=== PATIENT | male | born 1970 | race Caucasian/White ===

== ENCOUNTER → 2020-10-08 10:00 | Outpatient (BNVA) | payer OTHER, MEDICAID, SELFPAY | PROVIDERS: Family Provider Nurse Practitioner; PCP Nurse Practitioner; Visit Provider Nurse Practitioner Family | DX: I10 Essential (primary) hypertension (principal) | CPT/HCPCS: 80053 ==

== ENCOUNTER → 2020-12-13 10:15 | Outpatient (BNVA) | payer OTHER, MEDICAID, SELFPAY | PROVIDERS: Family Provider Nurse Practitioner; PCP Nurse Practitioner; Visit Provider Nurse Practitioner | DX: I10 Essential (primary) hypertension (principal); Z87.19 Personal history of other diseases of the digestive system; M51.34 Other intervertebral disc degeneration, thoracic region | CPT/HCPCS: 81000 ==

== ENCOUNTER 2020-12-30 09:15 | Outpatient (CLI) | payer OTHER, MEDICAID, SELFPAY ==
--- NOTE | 2020-12-30 09:30 | US_ITS ---
WS: [id number] ULTRASOUND ABDOMEN CLINICAL INFORMATION: Z87.19 - Personal history of other diseases of the digestive system COMPARISON: None. FINDINGS: Liver Size: Normal. Craniocaudal length: 14.9 cm. Echogenicity: Coarse and echogenic Surface nodularity: None. Mass (size and location): None. Bile ducts Intrahepatic ducts: Normal. Common bile duct diameter: 0.5 cm. Gallbladder Normal. Gallstones: None. Gallbladder sludge: None. Gallbladder wall thickening: None. Pericholecystic fluid: None. Sonographic Winter sign: Absent. Pancreas Normal as visualized. Spleen Splenomegaly: Mild Craniocaudal length: 13.6 cm. Right kidney: Normal. Hydronephrosis: None. Size: 10.3 cm x 5.3 cm x 5.9 cm Left kidney: Normal. Hydronephrosis: None. Size: 11.8 cm x 5.2 cm x 5.8 cm. Abdominal aorta and IVC Visualized portions are normal. Ascites: None. US/US abdomen complete* [id number] IMPRESSION: 1. Mild diffuse fatty infiltration of the liver. 2. No hydronephrosis in either kidney. 3. Normal gallbladder. 4. Mild splenomegaly measuring 13.5 CM.
== END 2020-12-30 09:16 | disposition home or self-care (01) ==
LOC: US 09:15
PROVIDERS: PCP Nurse Practitioner; Visit Provider Nurse Practitioner
DX: Z87.19 Personal history of other diseases of the digestive system (principal); R16.1 Splenomegaly, not elsewhere classified; K76.0 Fatty (change of) liver, not elsewhere classified
CPT/HCPCS: 76700

== ENCOUNTER → 2021-08-11 10:21 | Outpatient (BNVA) | payer OTHER, MEDICAID, SELFPAY | PROVIDERS: PCP Nurse Practitioner; Visit Provider Nurse Practitioner Family | DX: I10 Essential (primary) hypertension (principal); M51.34 Other intervertebral disc degeneration, thoracic region; M79.673 Pain in unspecified foot; G89.29 Other chronic pain | CPT/HCPCS: 80053; 80061; 84443; 85025 ==

== ENCOUNTER → 2021-11-26 13:36 | Outpatient (BNVA) | payer OTHER, MEDICAID, SELFPAY | PROVIDERS: PCP Nurse Practitioner; Referring Provider Nurse Practitioner Family; Visit Provider Podiatrist Foot & Ankle Surgery | DX: M79.671 Pain in right foot (principal); M79.672 Pain in left foot | CPT/HCPCS: 73630 ==

== ENCOUNTER → 2022-07-23 08:40 | Outpatient (BNVA) | payer OTHER, MEDICAID, SELFPAY | PROVIDERS: PCP Nurse Practitioner; Visit Provider Nurse Practitioner Family | DX: M79.671 Pain in right foot (principal) | CPT/HCPCS: 73630 ==

== ENCOUNTER 2022-07-31 03:30 | Emergency (ER) | payer OTHER, MEDICAID, SELFPAY ==
[2022-07-31 03:33] VITALS: BP 174/113; PULSE 65; RESP 18; TEMP 36.4; O2SAT 99; BMI 28.0
--- NOTE | 2022-07-31 03:41 | CTR_ITS ---
PROCEDURE INFORMATION: Exam: CT Abdomen And Pelvis Without Contrast Exam date and time: 07/31/2022 4:01 AM Age: 52 years old Clinical indication: Abdominal pain; Localized; Prior surgery; Surgery type: Appy; Patient HX: Lower abd pain with gross hematuria. ; Additional info: Abdominal pain, hematuria TECHNIQUE: Imaging protocol: Computed tomography of the abdomen and pelvis without contrast. Radiation optimization: All CT scans at this facility use at least one of these dose optimization techniques: automated exposure control; mA and/or kV adjustment per patient size (includes targeted exams where dose is matched to clinical indication); or iterative reconstruction. COMPARISON: CT abdomen pelvis wo con [id number] 03/16/2018 9:48 AM RADIATION DOSE METRICS: Total DLP (mGy-cm): 627.83 FINDINGS: Lungs: The lung bases are clear. No effusion Liver: Normal. No mass. Gallbladder and bile ducts: There is cholelithiasis without wall thickening or pericholecystic fluid. No bile duct stone. Pancreas: Normal. No ductal dilation. Spleen: There are multiple calcified splenic granulomata . Adrenal glands: Normal. No mass. Kidneys and ureters: Normal. No hydronephrosis. Stomach and bowel: Unremarkable. No obstruction. No mucosal thickening. Appendix: Appendix has been removed. Intraperitoneal space: Unremarkable. No free air. No significant fluid collection. Vasculature: Unremarkable. No abdominal aortic aneurysm. Lymph nodes: Unremarkable. No enlarged lymph nodes. Urinary bladder: There is urinary bladder wall thickening with pericystic fat stranding. Reproductive: Unremarkable as visualized. Bones/joints: Severe intervertebral disc space narrowing at L5-S1. Soft tissues: Unremarkable. CT/CT abdomen pelvis con [id number] IMPRESSION: 1. Findings concerning for acute cystitis. 2. Cholelithiasis without cholecystitis or choledocholithiasis.
[2022-07-31 04:00] LABS: Basophils % 0.2 %; Eosinophils # 0.2 10^3/uL (0.0-0.8); Eosinophils % 1.7 %; Hemoglobin 15.8 g/dL (11.7-16.6); Lymphocytes # 2.1 10^3/uL (0.8-4.8); Lymphocytes % 16.9 %; Mean Corpuscular HGB Conc 32.9 g/dL (30.0-36.0); Mean Corpuscular Volume 94.1 fl (80-94); Mean Platelet Volume 11.4 fL (7.4-10.4); Monocytes # 1.1 10^3/uL (0.2-0.9); Neutrophils # 8.93 10^3/uL (1.8-7.7); Nucleated Red Blood Cells % 0 %; Platelet Count 170 10^3/cmm (130-400); Red Cell Distribution Width 13.1 % (12.1-15.1); White Blood Count 12.4 10^3/uL (4.0-10.0)
[2022-07-31 04:08] VITALS: BP 157/101; PULSE 69; RESP 14; O2SAT 97
[2022-07-31 04:11] LABS: Glucose Urine UA Norm (Normal); Ketones Urine Negative (Negative); Protein Urine 3+ (Negative); Urine Appearance Cloudy (CLEAR); Urine Color Red (Yellow); pH Urine 6.5 (5-7)
[2022-07-31 04:12] LABS: Add Urine Microscopic? YES; Bacteria Urine 4+ /hpf; Bilirubin Urine Neg (Negative); Blood Urine 3+ (Negative); Leukocyte Esterase Urine 2+ (Negative); Nitrate Urine Negative (Negative); RBC Urine TOO NUMEROUS TO CNT /hpf (0-2); Squamous Epithelial Cell Urine 0-4 /hpf (0-5); Urobilinogen Urine Norm (Negative); WBC Urine TOO NUMEROUS TO CNT /hpf (0-5)
[2022-07-31 04:13] LABS: Add Urine Culture? Yes
[2022-07-31 04:26] LABS: Alanine Aminotransferase 45 U/L (0-41); Albumin Level 4.2 g/dL (3.5-5.2); Alkaline Phosphatase 118 U/L (40-130); Aspartate Amino Transferase 35 U/L (0-40); Blood Urea Nitrogen 9 mg/dL (6-20); Carbon Dioxide 25 mmol/L (22-29); Chloride 103 mmol/L (98-107); Globulin 3.3 g/dL (1.3-4.6); Glomerular Filtration Rate 89.3 mL/min (90-130); Glucose 94 mg/dL (65-115); Osmolality Calculated 284 mOsm/kg (285-295); Sodium 138 mmol/L (136-145); Total Bilirubin 0.5 mg/dL (0.15-1.2); Total Protein 7.5 g/dL (6.6-8.7)
[2022-07-31 04:34] LABS: Anion Gap 13.2 (5-19); Potassium 3.2 mmol/L (3.5-5.1)
[2022-07-31] MEDS: cefTRIAXone 2,000 MG in sodium chloride 0.9% (plus) 50 ML 100 MG IV (04:42)
--- NOTE | 2022-07-31 04:56 | W.ED.MALEGU ---
HPI - Male Genitourinary General: Chief complaint: Urogenital-Male Stated complaint: blood in urine Time Seen by Provider: 07/31/22 03:41 History of Present Illness: 52-year-old male presenting today with complaints for hematuria, dysuria and polyuria. Onset of symptoms this evening. No prior history of similar. Does have a history of multiple kidney stones in the past. But notes this did not have any flank pain rating into his groin. He notes initially he was urinating large blood clots. This is slowed down in frequency. He denies fevers or chills. He denies flank pain. He denies any other complaints. No recent antibiotic use Review of Systems General: Reports: 10 or more systems reviewed and unremarkable except in HPI and below PFSH ED PFSH: Medical History Degenerative disc disease, lumbar Degenerative disc disease, thoracic History of fatty infiltration of liver Hypertension Surgical History H/O arthroscopy of right knee History of appendectomy Family History Other Hypertension Stroke Denies family history of Diabetes Bleeding disorder Cancer Social History Smoking and tobacco status: current every day smoker Second hand smoke exposure: No Smoking risk assessment/counseling performed?: No Alcohol intake: current Alcohol intake frequency: 0-2 Drinks per Day Desire information about alcohol rehabilitation?: No Counseling given: No Desire information about substance/drug rehabilitation?: No Counseling given: No Adopted: No Caregiver/support person: No Lives independently: Yes Household members: children Marital status: Single Number of children: 2 service: No Current occupational status: 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pt History of recent travel: No Current gender identity: Male Physical Exam Const: COMMON NORMALS: no acute distress, patient oriented x3 and alert GENERAL APPEARANCE: cooperative ORIENTATION/CONSCIOUSNESS: Yes awake, Yes oriented to person, Yes oriented to place and Yes oriented to time HENMT: COMMON NORMALS: normocephalic, atraumatic, external ears normal, Normal external nose present and moist oral mucous membranes HEAD & SCALP: normal to inspection, normocephalic and atraumatic NOSE: Normal external nose present GENERAL EAR: hearing grossly impaired EXTERNAL EAR: Yes external ears normal Eye: COMMON NORMALS: Equal, round and reactive pupils present, EOMs intact bilaterally, conjunctivae normal and no scleral icterus GENERAL EYE: appearance normal, both eyes and all related structures EYELID: eyelids normal CONJUNCTIVA: Yes conjunctivae normal SCLERA: sclerae normal PUPIL: Yes Equal, round and reactive pupils present Neck/C-Spine: COMMON NORMALS: full ROM, supple and no JVD GENERAL: Yes normal visual inspection Lymph: LYMPHATIC: no lymphadenopathy noted and no lymphedema noted Chest: COMMONS NORMALS: normal inspection of the chest Resp: COMMON NORMALS: normal respiratory effort, No retractions and No use of accessory muscles Cardio: COMMON NORMALS: no JVD, regular rate and regular rhythm RATE: regular rate RHYTHM: regular rhythm GI: COMMON NORMALS: Normal to inspection, nondistended, normoactive bowel sounds present : COMMON NORMALS: Yes no CVA tenderness BLADDER/KIDNEY EXAM: Yes no CVA tenderness Back/Pelvis: COMMON NORMALS: no CVA tenderness and thoracic and lumbar spine normal to inspection Extremity: COMMON NORMALS: normal to inspection, full ROM and capillary refill normal GENERAL: Yes normal exam except as noted Neuro: COMMON NORMALS: patient oriented x3, CN's II-XII intact bilaterally, moves all extremities, no focal motor deficits, no sensory deficits noted and gait normal SENSORIUM/ORIENTATION: Yes alert, Yes oriented to person, Yes oriented to place and Yes oriented to time Psych: COMMON NORMALS: mental status grossly normal, Normal thought process present, cooperative and normal affect THOUGHT PROCESS: Normal thought process present Skin: COMMON NORMALS: no rashes or lesions noted and no wounds GENERAL SKIN EXAM: no rashes or lesions noted Course Vital Signs: Vital signs: Vital Signs Temperature 97.5 F L 07/31/22 03:33 Pulse Rate 67 07/31/22 05:30 Respiratory Rate 14 07/31/22 04:08 Blood Pressure 149/103 07/31/22 05:30 Pulse Oximetry 98 07/31/22 05:30 Oxygen Delivery Me thod 07/31/22 04:08 [facility] - Male Medical Decision Making 52-year-old male presenting today with dysuria and polyuria. Urinalysis with evidence of gross hematuria, pyuria. Suggestive of prostatitis/UTI. Patient with significant history of multiple kidney stones. CT KUB ordered for further evaluation. CT without stone. Patient was given strict return precautions and recommended routine outpatient follow-up. Lab Data : 07/31/22 03:51 07/31/22 03:51 Radiology Impressions Abdomen/Pelvis CT 07/31/22 03:41 IMPRESSION: 1. Findings concerning for acute cystitis. 2. Cholelithiasis without cholecystitis or choledocholithiasis. Laboratory Results WBC 12.4 10^3/uL (4.0-10.0) H 07/31/22 03:51 RBC 5.10 10^6/uL (4.1-5.3) 07/31/22 03:51 Hgb 15.8 g/dL (11.7-16.6) 07/31/22 03:51 Hct 48.0 % (42.0-52.0) 07/31/22 03:51 MCV 94.1 fl (80-94) H 07/31/22 03:51 MCH 31.0 pg (28.0-34.0) 07/31/22 03:51 MCHC 32.9 g/dL (30.0-36.0) 07/31/22 03:51 RDW 13.1 % (12.1-15.1) 07/31/22 03:51 Plt Count 170 10^3/cmm (130-400) 07/31/22 03:51 MPV 11.4 fL (7.4-10.4) H 07/31/22 03:51 Neut % (Auto) 72.0 % 07/31/22 03:51 Lymph % (Auto) 16.9 % 07/31/22 03:51 [place] % (Auto) 9.0 % 07/31/22 03:51 Eos % (Auto) 1.7 % 07/31/22 03:51 Baso % (Auto) 0.2 % 07/31/22 03:51 Neut # (Auto) 8.93 10^3/uL (1.8-7.7) H 07/31/22 03:51 Lymph # (Auto) 2.1 10^3/uL (0.8-4.8) 07/31/22 03:51 Garden # (Auto) 1.1 10^3/uL (0.2-0.9) H 07/31/22 03:51 Eos # (Auto) 0.2 10^3/uL (0.0-0.8) 07/31/22 03:51 Baso # (Auto) 0.0 10^3/uL (0.0-0.1) 07/31/22 03:51 Nucleated RBC % (auto) 0 % 07/31/22 03:51 Nucleated RBCs # 0.0 /100WBC 07/31/22 03:51 Sodium 138 mmol/L (136-145) 07/31/22 03:51 Potassium 3.2 mmol/L (3.5-5.1) L 07/31/22 03:51 Chloride 103 mmol/L (98-107) 07/31/22 03:51 Carbon Dioxide 25 mmol/L (22-29) 07/31/22 03:51 Anion Gap 13.2 (5-19) 07/31/22 03:51 BUN 9 mg/dL (6-20) 07/31/22 03:51 Creatinine 0.9 mg/dL (0.7-1.2) 07/31/22 03:51 GFR Calculation 89.3 mL/min (90-130) L 07/31/22 03:51 Glucose 94 mg/dL (65-115) 07/31/22 03:51 Calculated Osmolality 284 mOsm/kg (285-295) L 07/31/22 03:51 Calcium 9.0 mg/dL (8.5-10.5) 07/31/22 03:51 Total Bilirubin 0.5 mg/dL (0.15-1.2) 07/31/22 03:51 AST 35 U/L (0-40) 07/31/22 03:51 ALT 45 U/L (0-41) H 07/31/22 03:51 Alkaline Phosphatase 118 U/L (40-130) 07/31/22 03:51 Total Protein 7.5 g/dL (6.6-8.7) 07/31/22 03:51 Albumin 4.2 g/dL (3.5-5.2) 07/31/22 03:51 Globulin 3.3 g/dL (1.3-4.6) 07/31/22 03:51 Urine Color Red (Yellow) 07/31/22 03:51 Urine Appearance Cloudy (CLEAR) 07/31/22 03:51 Urine pH 6.5 (5-7) 07/31/22 03:51 Ur Specific [place] 1.010 (1.005-1.030) 07/31/22 03:51 Urine Protein 3+ (Negative) H 07/31/22 03:51 Urine Glucose (UA) Norm (Normal) 07/31/22 03:51 Urine Ketones Negative (Negative) 07/31/22 03:51 Urine Blood 3+ (Negative) H 07/31/22 03:51 Urine Nitrate Negative (Negative) 07/31/22 03:51 Urine Bilirubin Neg (Negative) 07/31/22 03:51 Urine Urobilinogen Norm mg/dL (Negative) 07/31/22 03:51 Ur Leukocyte Esterase 2+ (Negative) H 07/31/22 03:51 Urine RBC Too numerous to cnt /hpf (0-2) H 07/31/22 03:51 Urine WBC Too numerous to cnt /hpf (0-5) H 07/31/22 03:51 Ur Squamous Epith Cells 0-4 /hpf (0-5) H 07/31/22 03:51 Amorphous Sediment Not Reportable 07/31/22 03:51 Urine Bacteria 4+ /hpf (NONE) H 07/31/22 03:51 Discharge Plan Discharge Patient Disposition: Home Clinical Impression: Urinary tract infection Condition: Stable Prescriptions: New ciprofloxacin HCl 500 mg tablet 500 mg PO Q12H 14 Days Qty: 28 0RF No Action (DME) Custom Molded Orthotics See Rx Instructions .Route .MEDSUPPLY Qty: 1 0RF Rx Instructions: As directed lisinopril 20 mg tablet 20 mg PO DAILY 90 Days Qty: 90 3RF Discharge Orders: Discharge ED (Routine); Ordered 07/31/22 Ordered By: Rodney Lemus Referrals: Sean Lucas, MANAGEMENT INTERN-C [Primary Care Provider] - Patient Instructions: Urinary Tract Infection in Men (DC) Coding Level of Care Code ED Thread Separator for [place] Fwd Exam Comprehensive
[2022-07-31 05:30] VITALS: BP 149/103; PULSE 67; O2SAT 98
[2022-07-31 06:01] VITALS: BP 149/103; PULSE 67; O2SAT 98
== END 2022-07-31 06:03 | disposition home or self-care (01) ==
PROVIDERS: Emergency Provider Emergency Medicine; PCP Nurse Practitioner
DX: N39.0 Urinary tract infection, site not specified (principal)
CPT/HCPCS: 74176; 80053; 81001; 85025; 87086; 96360; 99285; J0696

== ENCOUNTER 2022-09-04 11:41 | Emergency (ER) | payer OTHER, MEDICAID, SELFPAY ==
--- NOTE | 2022-09-04 11:42 | XR_ITS ---
WS: [id number] Exam: XR hand RT min 3V* [id number] Date/Time of Exam: 09/04/2022 11:42 AM Reason For Exam: right hand injury Exam: XR hand RT min 3V* [id number] Date/Time of Exam: 09/04/2022 11:42 AM Reason For Exam: right hand injury Comparison 12/20/2017. No acute fracture or dislocation. Chronic soft tissue calcification along the third and fifth metacar pals. There appears to be an old fracture deformity at the base of the fifth metacarpal. XR/XR hand RT min 3V* [id number] IMPRESSION: 1. No acute fracture or dislocation.
[2022-09-04 11:52] VITALS: BP 125/83; PULSE 65; RESP 15; TEMP 36.5; O2SAT 98; BMI 27.4
--- NOTE | 2022-09-04 12:01 | W.ED.EXTPRO ---
Documented by User: Emily Patiño PA-C 09/04/22 12:45 HPI - Extremity Problem General: Chief complaint: Extremity Injury, Upper Stated complaint: right hand injury Time Seen by Provider: 09/04/22 12:01 Source: patient Mode of arrival: ambulatory Limitations: no limitations History of Present Illness: 52-year-old male presents to the ER today for right hand pain after getting it caught in a cynthia this morning. Patient reports he caught it between the cynthia and the truck. Patient reports there is an abrasion and significant pain at the base of his thumb. Patient reports mild swelling. He was able to pull his hand out and that is how he got the cut on it. He denies any numbness or tingling at this time. Denies any prior injury to this hand. Review of Systems General: Reports: 10 or more systems reviewed and unremarkable except in HPI and below PFSH ED PFSH: Medical History Degenerative disc disease, lumbar Degenerative disc disease, thoracic History of fatty infiltration of liver Hypertension Surgical History H/O arthroscopy of right knee History of appendectomy Family History Other Hypertension Stroke Denies family history of Diabetes Bleeding disorder Cancer Social History Smoking and tobacco status: current every day smoker Second hand smoke exposure: No Smoking risk assessment/counseling performed?: No Alcohol intake: current Alcohol intake frequency: 0-2 Drinks per Day Desire information about alcohol rehabilitation?: No Counseling given: No Desire information about substance/drug rehabilitation?: No Counseling given: No Adopted: No Caregiver/support person: No Lives independently: Yes Household members: children Marital status: Single Number of children: 2 service: No Current occupational status: 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[employer] History of recent travel: No Current gender identity: Male Physical Exam Const: COMMON NORMALS: no acute distress, average body habitus, patient oriented x3, no limitations, healthy appearing, alert and well nourished Resp: COMMON NORMALS: normal respiratory effort EFFORT & INSPECTION: Yes able to speak in complete sentences Cardio: COMMON NORMALS: regular rate and regular rhythm RATE: regular rate RHYTHM: regular rhythm Back/Pelvis: COMMON NORMALS: thoraco-lumbar ROM normal Extremity: NARRATIVE EXTREMITY EXAM: Patient has some mildly decreased range of motion of the thumb secondary to pain. There is mild swelling noted of the web spacing between the thumb and right index finger. No major tenderness of the joint noted. No deformity noted. Neuro: COMMON NORMALS: patient oriented x3 SENSORIUM/ORIENTATION: Yes alert Psych: COMMON NORMALS: mental status grossly normal, Normal thought process present and cooperative THOUGHT PROCESS: Normal thought process present Skin: NARRATIVE SKIN EXAM: Small abrasions noted to the base of the right thumb Course ED course: Patient presents for right hand pain after getting it stuck between a tractor cynthia. Patient reports pain with movement. Reports some swelling. On exam there does appear to be some swelling and also an abrasion. This abrasion is not an open laceration, is more of just a skin tear. No active bleeding. No obvious deformity. We will do an x-ray in ER today. Vital Signs: Vital signs: Vital Signs Temperature 97.7 F 09/04/22 11:52 Pulse Rate 65 09/04/22 11:52 Respiratory Rate 15 09/04/22 11:52 Blood Pressure 125/83 09/04/22 11:52 Pulse Oximetry 98 09/04/22 11:52 Oxygen Delivery Me thod 09/04/22 11:52 MDM - Extremity (Nontraumatic) Medical Decision Making X-rays negative for acute fracture. Patient reports his pain is tolerable. He would like to take home [id number] medications. We discussed home care instructions including ice bath, 20 minutes on and 20 and soft. Take ibuprofen for pain. Follow-up for new or worsening symptoms. Follow-up with PCP in 1 week. Patient verbalized understanding and was in agreement with the treatment plan. Lab Data Radiology Impressions Hand X-Ray 09/04/22 11:42 IMPRESSION: 1. No acute fracture or dislocation. Critical Care Time Critical Care Time: Critical Care Time: No Discharge Plan Discharge Patient Disposition: Home Clinical Impression: Contusion of hand, right Qualifiers: Encounter type: initial encounter Qualified Code(s): S60.221A - Contusion of right hand, initial encounter Condition: Stable Prescriptions: No Action (DME) Custom Molded Orthotics See Rx Instructions .Route .MEDSULY Qty: 1 0RF Rx Instructions: As directed lisinopril 20 mg tablet 20 mg PO DAILY 90 Days Qty: 90 3RF Discharge Orders: Discharge ED (Routine); Ordered 09/04/22 Ordered By: Emily Patiño Referrals: Sean Lucas FNP-C [Primary Care Provider] - Discharge Diet: Usual diet Discharge Activity: Increase activity as tolerated Patient Instructions: Opioid Safety, Pain Management Activity Restrictions/Additional Instructions: Apply ice, 20 minutes on and 20 minutes off. Take ibuprofen for pain. Follow-up with PCP in 1 week if no improvement. Return to the ER with new or worsening symptoms. Coding Level of Care Code ED Cardiovascular Operating Room Nurse for Chg Fwd Exam Detailed Documented by User: Mohan Kelley DO 09/04/22 17:56 HPI - Extremity Problem General: Chief complaint: Extremity Injury, Upper Stated complaint: right hand injury Time Seen by Provider: 09/04/22 12:01 [facility] ED PFSH: Medical History Degenerative disc disease, lumbar Degenerative disc disease, thoracic History of fatty infiltration of liver Hypertension Surgical History H/O arthroscopy of right knee History of appendectomy Family History Other Hypertension Stroke Denies family history of Diabetes Bleeding disorder Cancer Social History Smoking and tobacco status: current every day smoker Second hand smoke exposure: No Smoking risk assessment/counseling performed?: No Alcohol intake: current Alcohol intake frequency: 0-2 Drinks per Day Desire information about alcohol rehabilitation?: No Counseling given: No Desire information about substance/drug rehabilitation?: No Counseling given: No Adopted: No Caregiver/support person: No Lives independently: Yes Household members: children Marital status: Single Number of children: 2 service: No Current occupational status: 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 Patient reports his pain is tolerable. He would like to take home [id number] medications. We discussed home care instructions including ice bath, 20 minutes on and 20 and soft. Take ibuprofen for pain. Follow-up for new or worsening symptoms. Follow-up with PCP in 1 week. Patient verbalized understanding and was in agreement with the treatment plan. Chart reviewed and patient discussed with midlevel. Agree with assessment and plan. Lab Data Radiology Impressions Hand X-Ray 09/04/22 11:42 IMPRESSION: 1. No acute fracture or dislocation. Discharge Plan Discharge Patient Disposition: Home Clinical Impression: Contusion of hand, right Qualifiers: Encounter type: initial encounter Qualified Code(s): S60.221A - Contusion of right hand, initial encounter Condition: Stable Prescriptions: No Action (DME) Custom Molded Orthotics See Rx Instructions .Route .MEDSUPPLY Qty: 1 0RF Rx Instructions: As directed lisinopril 20 mg tablet 20 mg PO DAILY 90 Days Qty: 90 3RF Discharge Orders: Discharge ED (Routine); Ordered 09/04/22 Ordered By: Emily Patiño Referrals: Sean Lucas, CHAIR LIFT OPERATOR-C [Primary Care Provider] - Discharge Diet: Usual diet Discharge Activity: Increase activity as tolerated Patient Instructions: Opioid Safety, Pain Management Activity Restrictions/Additional Instructions: Apply ice, 20 minutes on and 20 minutes off. Take ibuprofen for pain. Follow-up with PCP in 1 week if no improvement. Return to the ER with new or worsening symptoms. Coding Level of Care Code ED Cardiovascular Operating Room Nurse for Juli Fwjodie Exam Detailed
== END 2022-09-04 12:21 | disposition home or self-care (01) ==
PROVIDERS: Emergency Provider Physician Assistant; PCP Nurse Practitioner
DX: S60.221A Contusion of right hand, initial encounter (principal); I10 Essential (primary) hypertension; F17.210 Nicotine dependence, cigarettes, uncomplicated; W20.8XXA Other cause of strike by thrown, projected or falling object, initial encounter
CPT/HCPCS: 73130; 99283

== ENCOUNTER → 2022-11-11 11:03 | Outpatient (BNVA) | payer OTHER, MEDICAID, SELFPAY | PROVIDERS: PCP Nurse Practitioner; Visit Provider Nurse Practitioner Family | DX: R10.30 Lower abdominal pain, unspecified (principal); I10 Essential (primary) hypertension | CPT/HCPCS: 80053; 81000; 85025 ==

== ENCOUNTER 2023-04-04 15:45 | Emergency (ER) | payer OTHER, MEDICAID, SELFPAY ==
[2023-04-04 16:19] VITALS: BP 128/83; PULSE 67; RESP 14; TEMP 36.6; O2SAT 99; BMI 27.4
[2023-04-04] MEDS: HYDROcodone-acetaminophen 5-325 mg Tablet 1 TAB PO (18:13)
--- NOTE | 2023-04-04 18:13 | ED_ITS ---
HPI - Skin/Abscess/Foreign Bdy General: Chief complaint: Skin/Abscess/Foreign Body Stated complaint: lump on jaw, says not abscess Time Seen by Provider: 04/04/23 18:08 Source: patient Mode of arrival: ambulatory Limitations: no limitations History of Present Illness: 52-year-old male states he had abscess to his left jaw for the last few days. He has been taking Bactrim but with no relief. He states it is grown his come to ahead he is having pain he rates a 6 out of 10. Denies any fever denies difficulty swallowing. Associated symptoms: Deny chills, fever(s), nausea or vomiting Review of Systems Const: Denies: fever(s) or chills ENMT: Denies: throat pain or dental pain Card: Denies: chest pain Resp: Denies: dyspnea GI: Denies: abdominal pain, nausea or vomiting Musc: Denies: neck pain or back pain Neuro: Denies: headache(s) PFSH ED PFSH: Medical History Degenerative disc disease, lumbar Degenerative disc disease, thoracic History of fatty infiltration of liver Hypertension Surgical History H/O arthroscopy of right knee History of appendectomy Family History Other Hypertension Stroke Denies family history of Diabetes Bleeding disorder Cancer Social History Smoking and tobacco status: current every day smoker Second hand smoke exposure: No Smoking risk assessment/counseling performed?: No Alcohol intake: current Alcohol intake frequency: 0-2 Drinks per Day Desire information about alcohol rehabilitation?: No Counseling given: No Substance/Drug Use: never Desire information about substance/drug rehabilitation?: No Counseling given: No Adopted: No Caregiver/support person: No Lives independently: Yes Household members: children Marital status: Single Number of children: 2 service: No Current occupational status: 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pt Do you think of yourself as: Straight/Heterosexual Current gender identity: Male Physical Exam Const: COMMON NORMALS: no acute distress, patient oriented x3 and healthy appearing HENMT: COMMON NORMALS: normocephalic and atraumatic HEAD & SCALP: normocephalic and atraumatic OTHER: 2 cm abscess to the left mandible Neck/C-Spine: COMMON NORMALS: full ROM and supple Chest: COMMONS NORMALS: normal inspection of the chest Resp: COMMON NORMALS: normal respiratory effort Cardio: COMMON NORMALS: regular rate, regular rhythm and No murmurs present (Cardio) RATE: regular rate RHYTHM: regular rhythm GI: INSPECTION: Yes normal to inspection Extremity: COMMON NORMALS: normal to inspection and full ROM Neuro: COMMON NORMALS: patient oriented x3, moves all extremities and no focal motor deficits Psych: COMMON NORMALS: mental status grossly normal, Normal thought process present and cooperative THOUGHT PROCESS: Normal thought process present Skin: COMMON NORMALS: no rashes or lesions noted and no wounds GENERAL SKIN EXAM: no rashes or lesions noted Procedures Abscess I/D Site: face Side (if applicable): left Local Anesthetic: lidocaine 1% Amount of anesthesia used (mL): 7 Technique: incised with #11 blade Course Vital Signs: Vital signs: Vital Signs Temperature 97.8 F 04/04/23 16:19 Pulse Rate 67 04/04/23 16:19 Respiratory Rate 14 04/04/23 16:19 Blood Pressure 128/83 04/04/23 16:19 Pulse Oximetry 99 04/04/23 16:19 Oxygen Delivery Me thod Room Air 04/04/23 16:19 MDM - Skin/Abscess/Foreign Bdy Medicial Decision Making Patient presents for an abscess to his left jawline. I did incise and drain the abscess with moderate amount of purulent drainage he is to do warm compresses he is to continue the Bactrim return if worsening he understands agrees to plan. Discharge Plan Discharge Patient Disposition: Home Clinical Impression: Abscess Condition: Stable Prescriptions: No Action (DME) Custom Molded Orthotics See Rx Instructions .Route .MEDSUPPLY Qty: 1 0RF Rx Instructions: As directed cyclobenzaprine 10 mg tablet 10 mg PO TID Qty: 14 0RF sulfamethoxazole-trimethoprim [Bactrim DS] 800-160 mg tablet 1 tab PO BID Qty: 20 0RF mupirocin 2 % ointment 1 applic topical TID Qty: 22 1RF lisinopril 20 mg tablet 20 mg PO DAILY 90 Days Qty: 90 3RF Discharge Orders: Discharge ED (Routine); Ordered 04/04/23 Ordered By: Diego Burns Referrals: Sean Lucas, CHANNEL ACCOUNT MANAGER-C [Primary Care Provider] - 1-3 days Discharge Diet: Advance as tolerated Discharge Activity: Resume usual activity Patient Instructions: Abscess (ED) Coding Level of Care Code ED [employer] for Juli Corral
[2023-04-04 18:37] VITALS: PULSE 80; RESP 16; O2SAT 99
== END 2023-04-04 18:39 | disposition home or self-care (01) ==
PROVIDERS: Emergency Provider Emergency Medicine; PCP Nurse Practitioner
DX: M27.2 Inflammatory conditions of jaws (principal)
CPT/HCPCS: 10060; 99283

== ENCOUNTER → 2023-06-18 10:45 | Outpatient (BNVA) | payer OTHER, MEDICAID, SELFPAY | PROVIDERS: PCP Nurse Practitioner; Visit Provider Nurse Practitioner Family | DX: I10 Essential (primary) hypertension (principal); Z12.5 Encounter for screening for malignant neoplasm of prostate | CPT/HCPCS: 80053; 80061; 84443; 85025; G0103 ==

== ENCOUNTER 2023-11-03 09:32 | Outpatient (CLI) | payer OTHER, MEDICAID, SELFPAY ==
--- NOTE | 2023-11-03 10:00 | USR_ITS ---
PROCEDURE INFORMATION: Exam: US Right Non-Vascular Joint or Other Extremity Structure Exam date and time: 11/03/2023 9:58 AM Age: 53 years old Clinical indication: Pain; Ankle; Right; Additional info: Right ankle pain TECHNIQUE: Imaging protocol: Right US joint or other nonvascular extremity structure or structures. Real-time ultrasound with image documentation. Limited study. Exam focused on the lower extremity in the region of clinical interest. COMPARISON: CT abdomen pelvis wo con [id number] 07/31/2022 4:01 AM FINDINGS: Soft tissues: Unremarkable. No loculated collections. US/US soft tissue/extremity [id number] IMPRESSION: Unremarkable US.
== END 2023-11-03 09:33 | disposition home or self-care (01) ==
LOC: RAD 09:32
PROVIDERS: PCP Nurse Practitioner; Visit Provider Nurse Practitioner Family
DX: M25.571 Pain in right ankle and joints of right foot (principal)
CPT/HCPCS: 76882

== ENCOUNTER → 2023-12-27 11:59 | Outpatient (BNVA) | payer OTHER, MEDICAID, SELFPAY | PROVIDERS: PCP Nurse Practitioner; Visit Provider Nurse Practitioner Family | DX: I10 Essential (primary) hypertension (principal) | CPT/HCPCS: 80053; 80061; 84443; 85025 ==

== ENCOUNTER → 2024-01-11 09:30 | Outpatient (BNVA) | payer OTHER, MEDICAID, SELFPAY | PROVIDERS: PCP Nurse Practitioner; Visit Provider Nurse Practitioner Family | DX: R79.89 Other specified abnormal findings of blood chemistry (principal) | CPT/HCPCS: 86705; 86706; 86709; 86803; 87340 ==

== ENCOUNTER 2024-01-19 08:44 | Outpatient (CLI) | payer OTHER, MEDICAID, SELFPAY ==
--- NOTE | 2024-01-19 10:00 | CT_ITS ---
WS: [id number] CT ABDOMEN AND PELVIS NONCONTRAST HISTORY: R10.32 - Left lower quadrant pain TECHNIQUE: Imaging performed through the abdomen and pelvis. Coronal and sagittal reformats are submi tted. All CT scans at [facility] use at least one of these dose optimization techniques: auto mated exposure control; mA and/or kV adjustment per patient size (includes targeted exams where dose is matched to clinical indication); or iterative reconstruction. DLP: 468.86 mGy.cm COMPARISON: 07/31/2022 Lower thorax: Lung bases are clear. Small hiatal hernia. Small amount of oral contrast in the distal esophagus. Liver: Decreased attenuation throughout the entire liver. Mild hepatic steatosis. Gallbladder: Cholelithiasis without acute cholecystitis. No bile duct dilatation. Pancreas: Normal size and attenuation. Normal pancreatic duct. No pancreatitis or mass. Spleen: Spleen is slightly enlarged measuring 13.7 cm in length with a single scattered granuloma. Adrenal glands: Normal. No mass. Right kidney: Normal size kidney with no mass or hydronephrosis. Left kidney: Normal size kidney with no mass or hydronephrosis. Aorta: Normal abdominal aorta, no aneurysm or atherosclerosis. No free fluid, intraperitoneal air or significant lymphadenopathy. GI tract: Normal stomach and small bowel. No obstruction. Prior appendectomy. Abdominal wall: Negative. No hernia. Pelvis: Normal. No inguinal hernia or adenopathy. Urinary bladder is normal. Osseous structures: Unremarkable. IMPRESSION: 1. No acute abdominal or pelvic abnormalities. 2. No LEFT lower quadrant hernia or adenopathy. 3. Mild hepatosplenomegaly. 4. Hepatic steatosis. 5. Cholelithiasis without acute cholecystitis. 6. Prior appendectomy.
[2024-01-19] MEDS: iohexol 350 mg/mL 500 mL Btl (per mL) PO (10:29)
== END 2024-01-19 08:45 | disposition home or self-care (01) ==
LOC: RAD 08:44
PROVIDERS: PCP Nurse Practitioner; Visit Provider Nurse Practitioner Family
DX: R10.32 Left lower quadrant pain (principal); R79.89 Other specified abnormal findings of blood chemistry; R14.0 Abdominal distension (gaseous); R16.2 Hepatomegaly with splenomegaly, not elsewhere classified; K76.0 Fatty (change of) liver, not elsewhere classified; K80.20 Calculus of gallbladder without cholecystitis without obstruction; Z90.89 Acquired absence of other organs
CPT/HCPCS: 74176; Q9967

== ENCOUNTER → 2024-01-25 09:09 | Outpatient (BNVA) | payer OTHER, MEDICAID, SELFPAY | PROVIDERS: PCP Nurse Practitioner; Visit Provider Nurse Practitioner Family | DX: R21 Rash and other nonspecific skin eruption (principal); M25.50 Pain in unspecified joint | CPT/HCPCS: 80053; 85025; 86431 ==

== ENCOUNTER 2024-04-27 09:06 | Day surgery (SDC) | payer OTHER, SELFPAY ==
[2024-04-27 09:19] VITALS: BP 136/102; PULSE 72; RESP 16; TEMP 36.4; O2SAT 100
[2024-04-27 09:21] VITALS: BMI 29.5
[2024-04-27] MEDS: sodium chloride 0.9% 1,000 ML 30 ML IV (09:28)
--- NOTE | 2024-04-27 09:32 | ANES.PREANE2 ---
Pre-Anesthetic Assessment Height/Weight: Height 1.8 m Weight 96.162 kg Temp Pulse Resp BP Pulse Ox O2 Del Method 97.6 F 72 16 136/102 100 Room Air 04/27/24 09:19 04/27/24 09:19 04/27/24 09:19 04/27/24 09:19 04/27/24 09:19 04/27/24 09:19 Operation Date: 04/27/24 10:25 Proposed Procedures p Colonoscopy 57151, G0121, Z12.11(Not Applicable) - Matt Casas MD Familial anesthetic complications: None Was Beta Trina taken within 24 hours: N/A Was Clonidine taken within 24 hours: N/A Last intake: Intake Last Liquid Date 04/26/24 Last Liquid Time 21:00 Last Solid Date 04/25/24 Last Solid Time 21:00 Social No alcohol and No tobacco Exam alert, oriented x 3, clear to auscultation bilaterally and regular rate & rhythm Airway Submandibular: within normal limits Cervical ROM: Other (Decreased ROM) Mallampati: Class III Dentition: chipped Comments: Comments: Poor dentition per patient History/ROS No significant history except as noted and No significant complaints Pulmonary Exertional Dyspnea CV/HEM Arrythmia (Vagal nerve ablation per patient) and Hypertension Hx kidney stones Hepatic Cirrhosis GI Gastroesophageal Reflux Disease (None this morning) and Peptic Ulcer Disease Metabolic None reported Musc/skel Lower Back Pain and Osteoarthritis/DJD Cervical stenosis Neuropsych Anxiety and Neuropathy Anesthetic Plan ASA status: 2 Anesthesia: Anesthesia Evaluation, General and MAC Risk of > 500 ml blood loss (7ml/kg in children): No Medications/Allergies Home Medications Medication Instructions Recorded Confirmed Last Taken Type Custom Molded Orthotics #1 ea 11/26/21 01/25/24 Unknown Rx cyclobenzaprine 10 mg tablet 10 mg PO TID #90 tabs 10/25/23 04/27/24 2 Weeks Ago Rx ~04/11/24 lisinopril 20 mg tablet 20 mg PO DAILY 90 days #90 tabs 12/27/23 04/25/24 04/25/24 Rx latanoprost 0.005 % eye drops 1 drp ophthalmic (eye) DAILY 04/25/24 04/27/24 04/27/24 History fwseupnj-kz-yibhs 300 mcg-K 60 1 tab PO DAILY 04/25/24 04/25/2404/25/24 History mcg-lycop 600 mcg-lutein 300 mcg tablet (Centrum Silver Men) Allergies Allergy/AdvReac Type Severity Reaction Status Date / Time No Known Allergies Allergy Verified 01/25/24 08:45 Current Medications Generic Name Dose Route Start Last Admin Trade Name Marcosq PRN Reason Stop Dose Admin Sodium Chloride 1,000 mls @ 30 mls/hr 04/27/24 09:15 04/27/24 09:28 Sodium Chloride 0.9% IV 30 mls/hr .Q24H BERNIE Administration PFSH Anesthesia Medical History Degenerative disc disease, lumbar Degenerative disc disease, thoracic History of fatty infiltration of liver Hypertension Surgical History H/O arthroscopy of right knee History of appendectomy Family History Other Hypertension Stroke Denies family history of Diabetes Bleeding disorder Cancer Social History Smoking and tobacco/nicotine status: never used tobacco/nicotine Second hand smoke exposure: No Alcohol intake: former Substance/Drug Use: never Adopted: No Caregiver/support person: No Lives independently: Yes Household members: children Marital status: Single Number of children: 2 service: No Current occupational status: 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pt Do you think of yourself as: Straight/Heterosexual Current gender identity: Male Data Anesthesia Cardiac Studies: No Data to Display
--- NOTE | 2024-04-27 09:54 | W.PM.OPSFHP ---
Same Day Surgery H&P Indication for Procedure/HPI DATE OF PROCEDURE: April 27, 2024 CHIEF COMPLAINT/INDICATIONFOR SURGICAL PROCEDURE: need for screening colonoscopy PREOP DIAGNOSIS: need for screening colonoscopy PLANNED PROCEDURE: Operation Date: 04/27/24 10:25 Proposed Procedures p Colonoscopy 75587, G0121, Z12.11(Not Applicable) - Matt Casas MD Medications/Allergies* Home Medications Medication Instructions Recorded Confirmed Type latanoprost 0.005 % eye drops 1 drp ophthalmic (eye) DAILY 04/25/24 04/27/24 History roojnjmj-wl-omiza 300 mcg-K 60 1 tab PO DAILY 04/25/24 04/25/24 History mcg-lycop 600 mcg-lutein 300 mcg tablet (Centrum Silver Men) Allergies/Adverse Reactions Allergy/AdvReac Type Severity Reaction Status Date / Time No Known Allergies Allergy Verified 01/25/24 08:45 Current Medications: Generic Name Dose Route Start Last Admin Trade Name Freq PRN Reason Stop Dose Admin Sodium Chloride 1,000 mls @ 30 mls/hr 04/27/24 09:15 04/27/24 09:28 Sodium Chloride 0.9% IV 30 mls/hr .Q24H BERNIE Administration Pertinent History/Comorbid Conditions* Medical History (Updated 01/19/24 @ 09:11 by Matt Casas MD) Degenerative disc disease, lumbar Degenerative disc disease, thoracic History of fatty infiltration of liver Hypertension Surgical History (Updated 12/13/20 @ 10:17 by TRINITY BeverlyC) H/O arthroscopy of right knee History of appendectomy Family History (Updated 12/13/20 @ 09:41 by Madelaine Sorto MA) Hypertension Stroke Denies family history of Diabetes Bleeding disorder Cancer Social History Smoking and tobacco/nicotine status: never used tobacco/nicotine Second hand smoke exposure: No Alcohol intake: former Substance/Drug Use: never Adopted: No Caregiver/support person: No Lives independently: Yes Household members: children Marital status: Single Number of children: 2 service: No Current occupational status: 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pt Do you think of yourself as: Straight/Heterosexual Current gender identity: Male Pertinent Exam Findings alert, oriented x 3 and clear to auscultation bilaterally Recommendations Surgery/Procedure today Coding Level of Care Code Acute Code for Chg Fwd
[2024-04-27 11:28] VITALS: BP 109/75; PULSE 72; RESP 16; TEMP 36.2; O2SAT 98
[2024-04-27 11:36] VITALS: BP 125/86; PULSE 67; RESP 16; TEMP 36.3; O2SAT 99
--- NOTE | 2024-04-27 11:50 | ANE.PACU2 ---
Inpatient post-anesthesia follow up: Airway intact: Yes Vital signs: Temperature 97.3 F Pulse Rate 67 Respiratory Rate 16 Blood Pressure 125/86 Pulse Oximetry 99 Oxygen Delivery Me thod Room Air Oxygen Flow Rate Fraction of Inspir ed Oxygen Hydration adequate: Yes Nausea and vomiting: No Pain level: 1 Mental status: Baseline
== END 2024-04-27 11:51 | disposition home or self-care (01) ==
PROVIDERS: PCP Nurse Practitioner; Visit Provider Surgery
PROC: 0DJD8ZZ Inspection of Lower Intestinal Tract, Via Natural or Artificial Opening Endoscopic (ICD-10-PCS; CPT 45378; principal; 2024-04-27 10:25)
DX: Z12.11 Encounter for screening for malignant neoplasm of colon (principal); D12.2 Benign neoplasm of ascending colon; D12.0 Benign neoplasm of cecum; D12.4 Benign neoplasm of descending colon; D12.5 Benign neoplasm of sigmoid colon; I10 Essential (primary) hypertension; K21.9 Gastro-esophageal reflux disease without esophagitis; Z87.11 Personal history of peptic ulcer disease
CPT/HCPCS: 45380; 45385; 88305; J2704; J7030

== ENCOUNTER → 2024-07-03 08:21 | Outpatient (BNVA) | payer OTHER, SELFPAY | PROVIDERS: PCP Nurse Practitioner; Visit Provider Nurse Practitioner | DX: R53.83 Other fatigue (principal); I10 Essential (primary) hypertension; R25.2 Cramp and spasm | CPT/HCPCS: 82040; 84270; 84403 ==

== ENCOUNTER 2025-05-17 23:03 | Emergency (ER) | payer OTHER, SELFPAY ==
[2025-05-17 23:05] VITALS: BP 167/124; PULSE 102; RESP 18; TEMP 36.8; O2SAT 96; BMI 28.5
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
--- OUTSIDE RECORDS SUMMARY | 2025-05-17 23:24 | XMS_ITS | Patient Health Record ---
Author Organization [facility] Address [address] [place] [address] Care Team Providers Care Water Treatment Technician Name Role Phone Meir Aguilar Primary Care Provider [phone] Allergies No Known Allergies Reason For Referral No Information Medications Medication SIG (Take, Route, Frequency, Duration) Notes Start Date End Date Status Amoxicillin 500 MG Capsule 1 capsule Orally every 8 hrs Not-Taking/PRN Lisinopril 20 MG Tablet 1 tablet Orally Once a day Active Social History Sex Assigned At : Social History Observation Description Sex Assigned At Male Plan Of Treatment No Information Insurance Providers Payer Name Payer Address Payer Phone Subscriber Number Group Number Insured Name Patient Relationship to Insured Coverage Start Date Coverage End Date Medicaid [address] [place] [phone] [id number] David Dawson Self - patient is the insured Medicaid Dental [address] [place] [id number] David Dawson Self - patient is the insured Medical (General) History Medical History History ICD Code seasonal allergies arthritis high blood pressure
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
[2025-05-17 23:40] VITALS: BP 149/96; PULSE 71; RESP 16; O2SAT 96
[2025-05-18 00:04] LABS: Hematocrit 47.0 % (37-53); Hemoglobin 15.40 g/dL (11.27-16.99); Mean Corpuscular HGB Conc 32.8 g/dL (30-55); Mean Corpuscular Hemoglobin 30.6 pg (27-33); Mean Corpuscular Volume 93.4 fl (82-101); Nucleated Red Blood Cells % 0 %; Platelet Count 175 10^3/cmm (157-399); Red Blood Count 5.03 10^6/uL (3.85-5.65); White Blood Count 8.76 10^3/uL (3.29-11.43)
[2025-05-18 00:13] LABS: INR 0.97 (0.8-1.2); Prothrombin Time 13.60 SECONDS (12.1-14.9)
[2025-05-18 00:21] LABS: Alanine Aminotransferase 54 U/L (0-41); Albumin Level 4.1 g/dL (3.5-5.2); Alcohol Level < 10 mg/dL (0-10); Alkaline Phosphatase 137 U/L (40-130); Anion Gap 12.8 (5-19); Aspartate Amino Transferase 48 U/L (0-40); Blood Urea Nitrogen 13 mg/dL (6-20); Calcium 9.3 mg/dL (8.5-10.5); Carbon Dioxide 27 mmol/L (22-29); Chloride 103 mmol/L (98-107); Creatinine Clr Calc Pharmacy 100.6798; Globulin 3.2 g/dL (1.3-4.6); Glucose 113 mg/dL (65-115); Osmolality Calculated 289 mOsm/kg (285-295); Potassium 3.8 mmol/L (3.5-5.1); Sodium 139 mmol/L (136-145); Total Protein 7.3 g/dL (6.6-8.7)
[2025-05-18 00:22] LABS: Lactic Sepsis W/Reflex 1.0 mmol/L (0.5-2.2)
[2025-05-18 00:41] LABS: Glucose Urine UA Negative (Normal); Nitrate Urine Negative (Negative); Specific Gravity, Urine 1.020 (1.005-1.030)
[2025-05-18 00:46] LABS: Add Urine Microscopic? YES
[2025-05-18 00:49] LABS: PCP Screen Urine Negative (Negative)
[2025-05-18] MEDS: tetanus-dipt-pertussis 0.5 mL SDV IM (00:54)
[2025-05-18] MEDS: orphenadrine 30 mg/mL Inj 2 mL 60 MG IM (00:54)
[2025-05-18 01:07] VITALS: BP 152/97; PULSE 65; RESP 16; O2SAT 95
== END 2025-05-18 01:06 | disposition home or self-care (01) ==
PROVIDERS: Emergency Provider Physician Assistant; PCP Nurse Practitioner
DX: S20.221A Contusion of right back wall of thorax, initial encounter (principal); I10 Essential (primary) hypertension; V89.2XXA Person injured in unspecified motor-vehicle accident, traffic, initial encounter
CPT/HCPCS: 36415; 70450; 71045; 72125; 72128; 73590; 80053; 80306; 80307; 81001; 83605; 85025; 85610; 90715; 96372; 99284; 99291; J1885; J2360

== ENCOUNTER 2025-06-04 06:13 | Outpatient (CLI) | payer OTHER, SELFPAY ==
--- NOTE | 2025-06-04 06:30 | US_ITS ---
WS: [id number] Limited abdomen ultrasound. HISTORY: Bulging of the midline anterior abdominal wall. COMPARISON: 12/30/2020, CT abdomen 01/19/2024 TECHNIQUE: 2-D and color Doppler imaging is submitted. Ultrasound is performed along the midline of the abdominal wall. No defect identified. No soft tissue masses or peristalsing loop of bowel. US/US abdomen limited [id number] IMPRESSION: Normal ultrasound midline abdominal wall.
== END 2025-06-04 06:14 | disposition home or self-care (01) ==
LOC: RAD 06:14
PROVIDERS: PCP Nurse Practitioner Family; Visit Provider Nurse Practitioner Family
DX: R19.00 Intra-abdominal and pelvic swelling, mass and lump, unspecified site (principal)
CPT/HCPCS: 76705

== ENCOUNTER 2025-08-18 20:46 | Emergency (ER) | payer OTHER, SELFPAY ==
[2025-08-18 20:50] VITALS: BP 147/98; PULSE 72; RESP 18; TEMP 36.8; O2SAT 98; BMI 29.4
--- OUTSIDE RECORDS SUMMARY | 2025-08-18 20:54 | XMS_ITS | Patient Health Record ---
Author Organization [facility] Address [address] [place] [address] Care Team Providers Care Assembly Room Supervisor Name Role Phone Meir Aguilar Primary Care Provider Allergies No Known Allergies Reason For Referral [...] Coverage End Date Medicaid [address] [place] [id number] David Dawson Self - patient is the insured Medicaid Dental [address] [place] [id number] [phone] [id number] David Dawson Self - patient is the insured Medical (General) History Medical History History ICD Code seasonal allergies arthritis high blood pressure
--- OUTSIDE RECORDS SUMMARY | 2025-08-18 20:54 | XMS_ITS | Patient Health Record ---
Author Organization [facility] Address [address] [place] [address] Care Team Providers Care Environmental Lead Name Role Phone Shane Tariq Unavailable [phone] Reason For Referral No Information Plan Of Treatment No Information Insurance Providers Payer Name Payer Address Payer Phone Subscriber Number Group Number Insured Name Patient Relationship to Insured Coverage Start Date Coverage End Date [employer] [place] [address] [place] [address] [id number] ALBERT SERRANO Self - patient is the insured
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
[2025-08-18 21:41] LABS: Add Urine Microscopic? NO
[2025-08-18 21:53] LABS: PCP Screen Urine Negative (Negative)
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
[2025-08-18 22:15] LABS: Glucose Urine UA Norm (Normal); Nitrate Urine Negative (Negative); Specific Gravity, Urine 1.010 (1.005-1.030)
[2025-08-18 22:16] LABS: Charge for UA Resulting for Rev
== END 2025-08-18 22:15 | disposition home or self-care (01) ==
PROVIDERS: Emergency Provider Physician Assistant; PCP Nurse Practitioner Family
DX: S60.811A Abrasion of right wrist, initial encounter (principal); S60.812A Abrasion of left wrist, initial encounter; V89.2XXA Person injured in unspecified motor-vehicle accident, traffic, initial encounter
CPT/HCPCS: 73110; 80306; 81003; 99283